=== PATIENT | female | born 1950 | race Caucasian/White ===

== ENCOUNTER → 2022-05-30 17:06 | Outpatient (CLI) | payer BC, SELFPAY ==
[2022-05-30 19:17] LABS: Thyroid Stimulating Hormone 2.38 uIU/mL (0.465-4.68)
[2022-05-30 19:21] LABS: Ferritin 51.9 ng/ml (11.1-264)
[2022-05-30 19:38] LABS: Hemoglobin A1C 5.5 % (4.0-6.0)
[2022-05-30 20:56] LABS: Vitamin B12 598 pg/mL (239-931)
== END ==
PROVIDERS: PCP Internal Medicine; Visit Provider Specialist
DX: R53.83 Other fatigue (principal); G62.9 Polyneuropathy, unspecified; E83.10 Disorder of iron metabolism, unspecified
CPT/HCPCS: 36415; 82607; 82728; 82746; 83036; 84443